=== PATIENT | female | born 1960 | race Caucasian/White ===

== ENCOUNTER 2017-12-10 20:34 | Emergency (ER) | payer OTHER ==
[~2017-12-10] VITALS: Ht 160 cm; Wt 87.2 kg
[2017-12-10 21:49] LABS: HEMATOCRIT 41.5 % (36.0-46.0); HEMOGLOBIN 14.4 G/DL (11.9-15.5); MCH 31.2 PG (29.0-34.0); MCHC 34.7 G/DL (30.0-36.0); RBC DIS.WIDTH-CV 13.1 % (11.8-14.6); RBC DIS.WIDTH-SD 43.3 % (39-53); RED BLOOD COUNT 4.61 M/uL (3.80-5.20); WHITE BLOOD COUNT 5.6 K/uL (4.1-10.2)
[2017-12-10 21:58] LABS: CHLORIDE 106 mEq/L (99-109); POTASSIUM 4.2 mEq/L (3.7-5.4); SODIUM 140 mEq/L (136-147)
[2017-12-10 22:00] LABS: GLUCOSE 121 mg/dL (70-99)
[2017-12-10 22:04] LABS: CREATININE 0.8 mg/dL (0.6-1.3); GFR ESTIMATE (CALCULATED) > 59 mL/min/
[2017-12-10 22:05] LABS: D-DIMER ELISA < 150.00 ng/mLDDU (<230); UREA NITROGEN (BUN) 20 mg/dL (9-23)
[2017-12-10 22:10] LABS: TROP-I INTERPRETATION NEGATIVE; TROPONIN-I < 0.01 ng/mL (0.0-0.30)
[2017-12-10 22:31] LABS: PLAT.SUFFICIENCY ADEQUATE; PLATELET COUNT 185 K/uL (156-360)
[2017-12-11 00:17] LABS: TROP-I INTERPRETATION NEGATIVE; TROPONIN-I < 0.01 ng/mL (0.0-0.30)
[2017-12-11 00:31] VITALS: BP 129/68
== END 2017-12-11 00:31 | disposition home or self-care (01) ==
LOC: EME 20:34
PROVIDERS: Emergency Medicine
DX: R55 Syncope and collapse (principal); G25.81 Restless legs syndrome; Z85.3 Personal history of malignant neoplasm of breast; Z91.040 Latex allergy status
CPT/HCPCS: 70450; 71046; 80048; 84484; 85027; 85379; 93005; 99281; 99284